=== PATIENT | female | born 1995 | race African-American/Black ===

== ENCOUNTER 2017-07-01 17:07 | Emergency (ER) | payer BC ==
[~2017-07-01] VITALS: Ht 177.8 cm; Wt 134.0 kg
[2017-07-01] MEDS ORDERED: METOCLOPRAMIDE HCL 10MG TABLET PO ONE (18:30)
[2017-07-01 20:02] LABS: BASOPHILS % 0.2 % (0.0-2.0); EOSINOPHILS % 0.1 % (0.0-5.0); HEMATOCRIT. 35.2 % (36.0-48.0); HEMOGLOBIN. 11.7 g/dL (12.0-16.0); LYMPHOCYTES % 16.8 % (20.0-50.0); MEAN CORPUSCULAR HEMOGLOBIN 27.5 pg (28.0-32.0); MEAN CORPUSCULAR VOLUME 82.5 fL (81.0-99.0); MEAN PLATELET VOLUME 9.2 fl (7.4-10.4); MONOCYTES % 4.8 % (2.0-8.0); NEUTROPHILS % 78.1 % (40.0-76.0); PLATELET 233 x1000/uL (130-400); RED BLOOD CELL COUNT 4.26 mill/uL (4.2-5.4); RED CELL DISTRIBUTION WIDTH 14.9 % (11.6-14.6)
[2017-07-01 20:19] LABS: CHLORIDE 108 mEq/L (98-107)
[2017-07-01 20:38] LABS: B-HCG QUANTITATIVE 32290 mIU/mL (<3)
[2017-07-01 21:29] VITALS: BP 145/78
== END 2017-07-01 22:05 | disposition home or self-care (01) ==
LOC: ER 17:07
DX: O21.0 Mild hyperemesis gravidarum (principal); O26.892 Other specified pregnancy related conditions, second trimester; R06.02 Shortness of breath; Z3A.17 17 weeks gestation of pregnancy; R03.0 Elevated blood-pressure reading, without diagnosis of hypertension
CPT/HCPCS: 36415; 76805; 80053; 81025; 84702; 85025; 86850; 86900; 86901; 99285; Z7610

== ENCOUNTER 2017-08-28 16:22 | Observation (INO) | payer BC ==
[~2017-08-28] VITALS: Ht 175.3 cm; Wt 140.6 kg
[2017-08-28] MEDS ORDERED: PREN1TAB87 PO (17:23)
[2017-08-28] MEDS ORDERED: OCD PO (17:23)
[2017-08-28] MEDS ORDERED: LACTATED RINGERS 1,000 ML IV SCH (18:00)
[2017-08-28 18:04] LABS: CLARITY URINE CLOUDY (CLEAR); COLOR URINE YELLOW (YELLOW); KETONES URINE NEGATIVE (NEGATIVE); LEUKOCYTE ESTERASE URINE 2+ (NEGATIVE); NITRITE URINE NEGATIVE (NEGATIVE); OCCULT BLOOD URINE NEGATIVE (NEGATIVE); PH URINE 7.5 (4.5-8.0); PROTEIN URINE NEGATIVE (NEGATIVE); SPECIFIC GRAVITY URINE 1.018 (1.005-1.030)
[2017-08-28 18:05] LABS: BASOPHILS % 0.6 % (0.0-2.0); EOSINOPHILS % 0.2 % (0.0-5.0); HEMATOCRIT. 34.2 % (36.0-48.0); HEMOGLOBIN. 11.5 g/dL (12.0-16.0); LYMPHOCYTES % 18.5 % (20.0-50.0); MEAN CORPUSCULAR HEMOGLOBIN 27.9 pg (28.0-32.0); MEAN PLATELET VOLUME 9.7 fl (7.4-10.4); MONOCYTES % 6.7 % (2.0-8.0); PLATELET 202 x1000/uL (130-400); RED BLOOD CELL COUNT 4.11 mill/uL (4.2-5.4); RED CELL DISTRIBUTION WIDTH 14.7 % (11.6-14.6)
[2017-08-28] MEDS ORDERED: CEFAZOLIN 2,000 MG in DEXT 5% WATER 100 ML IV NR (19:00)
== END 2017-08-28 21:15 | disposition home IV services (08) ==
LOC: L&D 16:22
PROVIDERS: ADMIT Obstetrics & Gynecology; ATTEND Obstetrics & Gynecology
DX: O26.892 Other specified pregnancy related conditions, second trimester (principal); R10.31 Right lower quadrant pain; Z3A.25 25 weeks gestation of pregnancy
CPT/HCPCS: 36415; 81003; 85025; 96365; 99281; G0378; J0690; J7120; 96360; 96361; J7060